=== PATIENT | female | born 1955 | race Caucasian/White ===

== ENCOUNTER → 2017-07-24 | Outpatient (CLI) | payer BC | LOC: FCPNEURO 20:00 | PROVIDERS: ATTEND Internal Medicine Sleep Medicine | DX: G47.33 Obstructive sleep apnea (adult) (pediatric) (principal) ==

== ENCOUNTER 2017-11-04 17:37 | Emergency (ER) | payer BC ==
--- NOTE | 2017-11-04 18:19 | EDPHY ---
H & P Stated Complaint: L eye flashes of light at 1630 today Time Seen by Provider: 11/04/17 17:58 HPI/ROS: CHIEF COMPLAINT: Light flashes left eye HISTORY OF PRESENT ILLNESS: The patient is a 62-year-old female with a history of diabetes and hypertension who states that she saw flashing lights in her left eye that lasted for approximately 20 min. This happened about an hour ago. She has a history of cataract surgery performed by Dr. Weaver. She has normal visual acuity exam 20/30 and 20/40. No headache. No focal weakness or deficits. No vision loss. No irritation or drainage. No foreign body sensation or trauma. She states that her vision is now returned to normal. REVIEW OF SYSTEMS: Constitutional: denies: chills, fever, recent illness, recent injury EENTM: See HPI denies: blurred vision, double vision, nose congestion Respiratory: denies: cough, shortness of breath Cardiac: denies: chest pain, irregular heart rate, lightheadedness, palpitations Gastrointestinal/Abdominal: denies: abdominal pain, diarrhea, nausea, vomiting, blood streaked stools Genitourinary: denies: dysuria, frequency, hematuria, pain Musculoskeletal: denies: joint pain, muscle pain Skin: denies: lesions, rash, jaundice, bruising Neurological: denies: headache, numbness, paresthesia, tingling, dizziness, weakness Hematologic/Lymphatic: denies: blood clots, easy bleeding, easy bruising Immunologic/allergic: denies: HIV/AIDS, transplant EXAM: GENERAL: Well-appearing, well-nourished and in no acute distress. HEAD: Atraumatic, normocephalic. EYES: Pupils equal round and reactive to light, extraocular movements intact, sclera anicteric, conjunctiva are normal. Tonometer pressure 18, no abnormalities seen on retinal exam with a difficult to see, ultrasound placed over RI. Small floaters that appear to be areas of hemorrhage a clot, no visible retinal detachment. ENT: TMs normal, nares patent, oropharynx clear without exudates. Moist mucous membranes. NECK: Normal range of motion, supple without lymphadenopathy or JVD. LUNGS: Breath sounds clear to auscultation bilaterally and equal. No wheezes rales or rhonchi. HEART: Regular rate and rhythm without murmurs, rubs or gallops. ABDOMEN: Soft, nontender, normoactive bowel sounds. No guarding, no rebound. No masses appreciated. BACK: No CVA tenderness, no spinal tenderness, step-offs or deformities EXTREMITIES: Normal range of motion, no pitting or edema. No clubbing or cyanosis. NEUROLOGICAL: Cranial nerves II through XII grossly intact. Normal speech, normal gait. 5/5 strength, normal movement in all extremities, normal sensation PSYCH: Normal mood, normal affect. SKIN: Warm, dry, normal turgor, no visible rashes or lesions. Source: Patient - Personal History Current Tetanus/Diphtheria Vaccine: Unsure Current Tetanus Diphtheria and Acellular Pertussis (TDAP): Unsure - Medical/Surgical History Hx Asthma: No Hx Chronic Respiratory Disease: No Hx Diabetes: No Hx Cardiac Disease: No Hx Renal Disease: No Hx Cirrhosis: No Hx Alcoholism: No Hx HIV/AIDS: No Hx Splenectomy or Spleen Trauma: No Other PMH: htn. anxiety. adhd. sleep apnea. cataract bilat surgery 2016 - Family History Significant Family History: No pertinent family hx - Social History Smoking Status: Never smoked Alcohol Use: Sober Drug Use: None Constitutional: Initial Vital Signs Temperature (C) 36.7 C 11/04/17 17:45 Respiratory Rate 16 11/04/17 17:45 Blood Pressure 160/80 H 11/04/17 17:45 O2 Sat (%) 93 11/04/17 17:45 O2 Delivery Mode Room Air Allergies/Adverse Reactions: Penicillins Allergy (Verified 03/01/13 16:06) Home Medications: Medication Instructions Recorded Amlodipine Besylate 11/04/17 Aspirin EC 81 mg (*) 11/04/17 Bupropion HBr 11/04/17 HCTZ (*) 11/04/17 Lipitor 11/04/17 Losartan Potassium 11/04/17 Metformin 1000 mg 11/04/17 Nexium 11/04/17 Medical Decision Making ED Course/Re-evaluation: 6:50 p.m. We have paged Ophthalmology. They have not yet called back. 7:00 p.m. I spoke with Dr. Arias. He agrees with discharge and says that this is likely vitreous detachment. He recommends follow-up this next week either with him or Dr. Weaver to his her primary computer system specialist. Differential Diagnosis: Partial list of the Differential diagnosis considered include but were not limited to; vitreal detachment, retinal detachment, and although unlikely based on the history and physical exam, I also considered the glaucoma, the iritis, CVA, TIA, migraine. I discussed these differential diagnoses and the plan with the patient as well as the usual and expected course. The patient understands that the diagnosis is provisional and that in medicine we are not always correct and that further workup is often warranted. Usual and customary warnings were given. All of the patient's questions were answered. The patient was instructed to return to the emergency department should the symptoms at all worsen or return, otherwise to followup with the physician as we discussed. Departure - Departure Disposition: Home, Routine, Self-Care Clinical Impression: Vitreous detachment of left eye Condition: Fair Instructions: Surgery for Retinal Detachment (DC) Referrals: Jn Rios MD [Primary Care Provider] - As per Instructions Jens Weaver MD [Medical Doctor] - As per Instructions Joel Arias MD [Medical Doctor] - As per Instructions
[2017-11-04 19:10] VITALS: BP 143/78
== END 2017-11-04 19:10 | disposition home or self-care (01) ==
DX: H43.812 Vitreous degeneration, left eye (principal); I10 Essential (primary) hypertension; E11.9 Type 2 diabetes mellitus without complications; Z79.82 Long term (current) use of aspirin; Z79.84 Long term (current) use of oral hypoglycemic drugs